=== PATIENT | male | born 1995 | race Two or more races ===

== ENCOUNTER 2016-10-22 06:13 | Emergency (ER) | payer BC ==
[~2016-10-22] VITALS: Ht 182.9 cm; Wt 104.3 kg
[2016-10-22 06:42] VITALS: BP 147/102
== END 2016-10-22 08:53 | disposition home or self-care (01) ==
LOC: ER 06:14
DX: S60.221A Contusion of right hand, initial encounter (principal); X50.0XXA Overexertion from strenuous movement or load, initial encounter; Y93.89 Activity, other specified; Y99.8 Other external cause status; Y92.89 Other specified places as the place of occurrence of the external cause
CPT/HCPCS: 73130

== ENCOUNTER 2017-01-10 03:26 | Emergency (ER) | payer BC ==
[~2017-01-10] VITALS: Ht 185.4 cm; Wt 108.9 kg
[2017-01-10 07:15] VITALS: BP 144/80
[2017-01-10] MEDS: KETOROLAC TROMETH 60MG/2ML VIAL IM ONE (07:30)
== END 2017-01-10 09:23 | disposition left against medical advice (07) ==
LOC: ER 03:26
DX: S33.5XXA Sprain of ligaments of lumbar spine, initial encounter (principal); X58.XXXA Exposure to other specified factors, initial encounter; Y93.89 Activity, other specified; Y99.8 Other external cause status; Y92.89 Other specified places as the place of occurrence of the external cause
CPT/HCPCS: 72100

== ENCOUNTER 2017-07-23 16:40 | Emergency (ER) | payer BC ==
[~2017-07-23] VITALS: Ht 182.9 cm; Wt 104.3 kg
[2017-07-23 16:46] VITALS: BP 125/83
[2017-07-23 18:28] LABS: Basophils # (auto) 0.1 uL; Basophils % (auto) 0.4 % (0.0-2.0); Eosinophils # (auto) 0 uL; Eosinophils % (auto) 0.1 % (0.0-7.0); Hematocrit 47.9 % (41.0-53.0); Hemoglobin 16.5 g/dL (13.5-17.5); Lymphocytes # (auto) 1.3 uL; Lymphocytes % (auto) 9.1 % (10.0-50.0); Mean Corpuscular Hemoglobin 30.6 pg (28.0-32.0); Mean Corpuscular Hgb Conc. 34.5 g/dL (32.0-36.0); Mean Corpuscular Volume 88.8 fL (80.0-100.0); Mean Platelet Volume 8.6 fL (6.9-10.8); Monocytes # (auto) 1.2 uL; Monocytes % (auto) 8.4 % (0.0-12.0); Neutrophils # (auto) 11.7 uL; Nucleated Red Blood Cells % 0.1 %; Platelet Count (auto) 285 10^3/uL (140-450); White Blood Cell 14.3 10^3/uL (4.4-10.8)
[2017-07-23 18:37] LABS: Urine Bilirubin Negative (Negative); Urine Blood 3+ /uL (Negative); Urine Color Yellow (Yellow); Urine Glucose TRACE mg/dL (Normal); Urine Ketone Negative (Negative); Urine Mucus FEW (None Seen); Urine Nitrite Negative (Negative); Urine RBC 266 /hpf (0 - 3); Urine Squamous Epithelial Cell FEW /hpf (<5); Urine WBC Clumps PRESENT /hpf (None Seen)
== END 2017-07-23 23:57 | disposition left against medical advice (07) ==
LOC: ER 16:40
DX: R10.9 Unspecified abdominal pain (principal); Z53.21 Procedure and treatment not carried out due to patient leaving prior to being seen by health care provider
CPT/HCPCS: 36415; 74176; 81001; 85025

== ENCOUNTER 2025-01-10 04:52 | Inpatient (IN) | payer BC, SELFPAY ==
[2025-01-10] VITALS (8 sets, daily range): BP systolic 120–145; BP diastolic 68–88; PULSE 62–99; RESP 16–22; TEMP 97.5–98.7; O2SAT 95–99
[~2025-01-10] VITALS: Ht 182.9 cm; Wt 110.5 kg
--- NOTE | 2025-01-10 05:05 | ED.PDOC ---
General HPI Comments 29 year old male presents to the ED via EMS with a chief complaint of LT flank pain onset today (01/10/25) around 03:00. Patient states he woke up today around 03:00, went to the restroom noticed he was unable to urinate, few droplets only, has urgency sensation as well as LT flank pain. Patient states he has experienced kidney stones in the past, pain is similar. Upon EMS arrival patient's pain was 10/10, was given Fentanyl 100 mcg as well as Zofran 4 mg for nausea. Denies vomiting, diarrhea, constipation, chest pain, shortness of breath, fevers, chills, headache, dizziness. No other symptoms or modifying factors present at this time. Chief Complaint: Flank Pain Time Seen by MD: 05:00 Primary Care Provider: Marla Clark notes: Medications, Allergies Allergies: Coded Allergies: NO KNOWN ALLERGIES (Unverified , 10/24/15) Home Meds Reported Medications Hydrocodone-Acetaminophen (Hydrocodone Bitartrate/AC 10-325 mg) 1 Tab Tab, 1 TAB PO QID, TAB 01/10/25 Information Source: Patient, Emergency Med Personnel Severity: Moderate Timing: Hours Duration: Since onset Prehospital treatment: Pain Meds (Fentanyl 100 mcg ), Treatment (Zofran 4 mg) Onset: Spontaneous Symptoms: Urgency History of: Kidney stone Location: (L)Flank Penile discharge: None Modifying factors: None associated signs and symptoms: Flank Pain (LT), Urgency Past Medical History PAST MEDICAL HISTORY: Kidney Stones Past Medical History (Other): chronic back pain Surgical History: Denies all surgeries Family History Family History: No family hx of DM, No family hx of Heart alix, No family hx of HTN Social History Smoker: Non-Smoker Alcohol: Denies ETOH Use Drugs: Denies Drug Use Lives In: Home Constitutional: denies: chills, diaphoresis, fatigue, fever, malaise, sweats, weakness, others EENTM: denies: blurred vision, double vision, ear bleeding, ear discharge, ear drainage, ear pain, ear ringing, eye pain, eye redness, hearing loss, mouth pain, mouth swelling, nasal discharge, nose bleeding, nose congestion, nose pain, photophobia, tearing, throat pain, throat swelling, voice changes, others Respiratory: denies: cough, hemoptysis, orthopnea, SOB at rest, shortness of breath, SOB with excertion, stridor, wheezing, others Cardiovascular: denies: chest pain, dizzy spells, diaphoresis, Dyspnea on exertion, edema, irregular heart beat, left arm pain, lightheadedness, palpitations, PND, syncope, others Gastrointestinal: denies: abdomen distended, abdominal pain, blood streaked bowels, constipated, diarrhea, dysphagia, difficulty swallowing, hematemesis, melena, nausea, poor appetite, poor fluid intake, rectal bleeding, rectal pain, vomiting, others Genitourinary: reports: flank pain (LT), urgency; denies: burning, dysuria, frequency, hematuria, incontinence, penile discharge, penile sore, pain, testicle pain, testicle swelling, others Neurological: denies: dizziness, fainting, headache, left sided numbness, left sided weakness, numbness, paresthesia, pre-existing deficit, right sided numb ness, right sided weakness, seizure, speech problems, tingling, tremors, weakness, others Musculoskeletal: denies: back pain, gout, joint pain, joint swelling, muscle pain, muscle stiffness, neck pain, others Integumetry: denies: bruises, change in color, change in hair/nails, dryness, laceration, lesions, lumps, rash, wounds, others Allergic/Immunocompromised: denies: Difficulty Healing, Frequent Infections, Hives, Itching, others Hematologic/Lymphatic: denies: anemia, blood clots, easy bleeding, easy bruising, swollen glands, others Endocrine: denies: excessive hunger, excessive sweating, excessive thirst, excessive urination, flushing, intolerance to cold, intolerance to heat, unexplained weight gain, unexplained weight loss, others Psychiatric: denies: anxiety, bipolar disorder, depression, hopeless, panic disorder, schizophrenia, sleepless, suicidal, others All Other Systems: Reviewed and Negative Physical Exam General Appearance: Normal HEENT: Normal ENT Inspection, Pharynx Normal, TMs Normal Neck: Full Range of Motion, Non-Tender, Normal, Normal Inspection Respiratory: Chest Non-Tender, Lungs Clear, No Accessory Muscle Use, No Re spiratory Distress, Normal Breath Sounds Cardiovascular: No Edema, No JVD, No Murmur, No Gallop, Normal Peripheral Pulses, Regular Rate/Rhythm Breast Exam: Deferred Gastrointestinal: No Organomegaly, Non Tender, No Pulsatile Mass, Normal Bowel Sounds, Soft Genitalia: Deferred Pelvic: Deferred Rectal: Deferred Extremities: No calf tenderness, Normal capillary refill, Normal inspection, Normal range of motion, Non-tender, No pedal edema Musculoskeletal : Apperance: Normal Neurologic: Alert, construction controller II-XII nml as Tested, No Motor Deficits, Normal Affect, Normal Mood, No Sensory Deficits Cerebellar Function: Normal Reflexes: Normal Skin: Dry, Normal Color, Warm Lymphatic: No Adenopathy Was a procedure done? Was a procedure done?: No Differential Diagnosis Kidney stone (Female): AAA, Aortic dissection, Bowel obstruction, Cholelithiasis, Pancreatitis, Pyelonephritis, Strain, Urinary obstruction, Urolithiasis, Other X-Ray, Labs, Meds, VS Vital Signs Date Time Temp Pulse Resp B/P (MAP) Pulse Ox O2 Delivery O2 Flow Rate FiO2 01/10/25 05:00 98.2 62 19 149/96 (113) 97 98.2 Lab Test 01/10/25 05:16 01/10/25 05:05 Range/Units White Blood Count 4.7 4.4-10.8 10^3/uL Red Blood Count 5.07 4.5-5.90 10^6/uL Hemoglobin 15.3 13.5-17.5 g/dL Hematocrit 44.3 41.0-53.0 % Mean Corpuscular Volume 87.4 80.0-100.0 fL Mean Corpuscular Hemoglobin 30.2 28.0-32.0 pg Mean Corpuscular Hemoglobin Concent 34.5 32.0-36.0 g/dL Red Cell Distribution Width 13.0 11.8-14.3 % Platelet Count 243 140-450 10^3/uL Mean Platelet Volume 7.9 6.9-10.8 fL Neutrophils (%) (Auto) 61.9 37.0-80.0 % Lymphocytes (%) (Auto) 29.3 10.0-50.0 % Monocytes (%) (Auto) 6.1 0.0-12.0 % Eosinophils (%) (Auto) 1.5 0.0-7.0 % Basophils (%) (Auto) 1.2 0.0-2.0 % Neutrophils # (Auto) 2.9 1.6-8.6 10 ^3/uL Lymphocytes # (Auto) 1.4 0.4-5.4 10 ^3/uL Monocytes # (Auto) 0.3 0-1.3 10 ^3/uL Eosinophils # (Auto) 0.1 0-0.8 10 ^3/uL Basophils # (Auto) 0.1 0-0.2 10 ^3/uL Nucleated Red Blood Cells 0.0 % Sodium Level 144 136-145 mmol/L Potassium Level 3.6 3.5-5.1 mmol/L Chloride Level 109 H 98-107 mmol/L Carbon Dioxide Level 24 20-31 mmol/L Anion Gap 11 5-15 Blood Urea Nitrogen 17 9-23 mg/dL Creatinine 0.88 0.700-1.30 mg/dL Glomerular Filtration Rate Calc 120 >90 mL/min BUN/Creatinine Ratio 19.3 10.0-20.0 Serum Glucose 105 74-106 mg/dL Calcium Level 9.4 8.7-10.4 mg/dL Total Bilirubin 0.6 0.2-1.0 mg/dL Aspartate Amino Transferase (AST) 17 13-40 U/L Alanine Aminotransferase (ALT) 26 7-40 U/L Alkaline Phosphatase 74 46-116 U/L Total Protein 7.0 5.7-8.2 g/dL Albumin 4.6 3.2-4.8 g/dL Lipase 46 12-53 U/L Urine Color Light-yellow Yellow Urine Clarity Clear Clear Urine pH 6.0 5.0-9.0 Urine Specific [place] 1.021 1.001-1.035 Urine Protein Negative Negative Urine Ketones Negative Negative Urine Blood 3+ H Negative /uL Urine Nitrite Negative Negative Urine Bilirubin Negative Negative Urine Urobilinogen Normal Negative mg/dL Urine Leukocyte Esterase Negative Negative /uL Urine RBC 178 0 - 3 /hpf Urine Microscopic WBC 6 H 0-3 /HPF Urine Squamous Epithelial Cells Few <5 /hpf Urine Bacteria None seen None Seen /hpf Urine Mucus Few None Seen Urine Glucose Normal Normal mg/dL Time of 1ST Reevaluation: 05:30 Reevaluation 1ST: Unchanged Patient Education/Counseling: Diagnosis, Treatment, Prognosis Family Education/Counseling: No Family Present Departure 1 Departure Time of Disposition: 07:30 Impression: Primary Impression: Musculoskeletal pain Disposition: 01 HOME / SELF CARE / HOMELESS Condition: Stable Discharged With: Self Critical Care Note Critical Care Time?: No Stability Stability form required: No I personally scribed for NOWLIS,MIN A MD ([email or web address]) on 01/10/25 at 05:05. Electronically submitted by Hilda Alvarado ([email or web address]). MIN SEO MD Jan 10, 2025 05:05
[2025-01-10 05:30] LABS: Basophils # (auto) 0.1 10 ^3/uL (0-0.2); Basophils % (auto) 1.2 % (0.0-2.0); Eosinophils # (auto) 0.1 10 ^3/uL (0-0.8); Eosinophils % (auto) 1.5 % (0.0-7.0); Hematocrit 44.3 % (41.0-53.0); Hemoglobin 15.3 g/dL (13.5-17.5); Lymphocytes # (auto) 1.4 10 ^3/uL (0.4-5.4); Lymphocytes % (auto) 29.3 % (10.0-50.0); Mean Corpuscular Hemoglobin 30.2 pg (28.0-32.0); Mean Corpuscular Hgb Conc. 34.5 g/dL (32.0-36.0); Mean Corpuscular Volume 87.4 fL (80.0-100.0); Monocytes # (auto) 0.3 10 ^3/uL (0-1.3); Monocytes % (auto) 6.1 % (0.0-12.0); Neutrophils # (auto) 2.9 10 ^3/uL (1.6-8.6); Neutrophils % (auto) 61.9 % (37.0-80.0); Platelet Count (auto) 243 10^3/uL (140-450); Red Blood Cells 5.07 10^6/uL (4.5-5.90); White Blood Cell 4.7 10^3/uL (4.4-10.8)
[2025-01-10 05:47] LABS: Alanine Aminotransferase 26 U/L (7-40); Albumin 4.6 g/dL (3.2-4.8); Alkaline Phosphatase 74 U/L (46-116); Anion Gap 11 (5-15); Aspartate Aminotransferase 17 U/L (13-40); BUN/Creatinine Ratio 19.3 (10.0-20.0); Bilirubin, Total 0.6 mg/dL (0.2-1.0); Blood Urea Nitrogen 17 mg/dL (9-23); Calcium 9.4 mg/dL (8.7-10.4); Carbon Dioxide 24 mmol/L (20-31); Glucose 105 mg/dL (74-106); Lipase 46 U/L (12-53); Potassium 3.6 mmol/L (3.5-5.1); Sodium 144 mmol/L (136-145)
[2025-01-10 05:51] LABS: Chloride 109 mmol/L (98-107)
--- NOTE | 2025-01-10 05:55 | DVH ---
Exam: CT CT AB PEL WO CON-NO ORAL OR IV History: left flank pain Comparison Study: None Technique: Multidetector spiral CT of the abdomen and pelvis was performed from lung bases to pubic s ymphysis. Imaging was performed without intravenous contrast. Coronal and sagittal multiplanar reform ats were obtained from the axial data set by the technologist. Radiation Dose : 1. Abdomen/Pelvis: CTDIvol 11.1 mGy, DLP 693.2 mGy*cm. Findings: Evaluation of vasculature and solid organs is limited due to lack of intravenous contrast use. Lung Bases: Lung bases are clear. Visualized portions of the heart and pericardium are unremarkable. Liver: The liver is normal in size. No focal lesions. Gallbladder and Biliary Tree: The gallbladder is unremarkable. No intrahepatic or extrahepatic biliar y ductal dilatation. Spleen: Unremarkable Pancreas: The pancreas is grossly unremarkable. Adrenal Glands: Unremarkable Kidneys: There is a 3 mm nonobstructive calculus in the lower pole of the right kidney. No left intra renal calculi. No hydronephrosis in the right or left kidney. There is a 2 mm nonobstructive calculus at the left ureterovesical junction with mild upstream dilatation of the distal left ureter. GI tract: The stomach is grossly normal in appearance. No evidence of small bowel wall thickening or abnormal dilatation to suggest bowel obstruction. The colon is unremarkable. The appendix is not visu alized, however no inflammatory changes in the right lower quadrant to suggest acute appendicitis. Peritoneum/mesentery/retroperitoneum. No evidence of free intraperitoneal air. No ascites. No evidenc e of suspicious lymphadenopathy. Abdominal Wall: Unremarkable. Vasculature: The visualized abdominal aorta is normal in size and caliber. Evaluation of abdominal a nd pelvic vessels is limited due to lack of intravenous contrast. Urinary Bladder: Grossly unremarkable for degree of distention. Pelvic Organs: Unremarkable Musculoskeletal: No aggressive focal bony lesions, acute fractures or dislocation. IMPRESSION: 1. 2 mm obstructing calculus at the left ureterovesical junction causing mild distal left hydroureter onephrosis. 2. Nonobstructing right intrarenal calculus.
[2025-01-10 06:03] LABS: Urine Bacteria None Seen /hpf (None Seen)
[2025-01-10 06:16] LABS: Urine Blood 3+ /uL (Negative); Urine Clarity Clear (Clear); Urine Color Light-Yellow (Yellow); Urine Mucus FEW (None Seen); Urine Protein, UAD Negative (Negative); Urine Specific Gravity 1.021 (1.001-1.035); Urine Squamous Epithelial Cell FEW /hpf (<5); Urine Urobilinogen Normal (Negative); Urine WBC 6 /HPF (0-3)
[2025-01-10] MEDS ORDERED: ACETAMINOPHEN 325 MG TAB PO PRN (07:30)
[2025-01-10] MEDS ORDERED: ONDANSETRON HCL 4 MG/2 ML VIAL IV PRN (07:30)
--- NOTE | 2025-01-10 07:31 | DVHHP2 ---
History of Present Illness Reason for Visit: Left flank pain History of Present Illness Sukumar Vines is a 29-year-old male with past medical history of MS, nephrolithiasis, DDD, and chronic back pain who presents to the ED with left flank pain with nausea and constipation that started at 3:00 a.m today. Upon examination patient states that the pain is currently 1 to 2/10 sharp and constant. He states on the way here EMS gave him pain medications for relief. Patient states that he takes pain medications for his chronic back pain. Patient denies any recent trauma or injury, recent sick contacts, recent travels, recent ingestion of spoiled food, chest pain, shortness of breath, abdominal pain, vomiting, or diarrhea. Past Medical History Nephrolithiasis Degenerative disc disease Multiple sclerosis Chronic back pain Past Surgical History: None Family History: None Smoke: No ALCOHOL: none Drugs: Marijuana Lives: with Family Domestic Violence: Neg Review of Systems Gastrointestinal: Nausea, Constipation Musculoskeletal: other (Left flank pain) Allergies: Coded Allergies: NO KNOWN ALLERGIES (Unverified , 10/24/15) Exam Vital Signs Vital Signs Date Time Temp Pulse Resp B/P (MAP) Pulse Ox O2 Delivery O2 Flow Rate FiO2 01/10/25 05:00 98.2 62 19 149/96 (113) 97 98.2 General Appearance: Alert, Oriented X3, Cooperative, No acute distress HEENT: Atraumatic, PERRLA, EOMI, Mucous membr. moist/pink Respiratory: Clear to auscultation, Normal air movement Cardiovascular: Regular rate, Normal S1, Normal S2, No murmurs Abdominal: Soft Extremities: No cyanosis, Normal pulses Neuro: Normal gait, Normal speech, Strength at 5/5 X4 ext, Normal tone, Sensation intact Psych/Mental Status: Mental status NL, Mood NL Labs/Xrays Labs Test 01/10/25 05:16 01/10/25 05:05 Range/Units White Blood Count 4.7 4.4-10.8 10^3/uL Red Blood Count 5.07 4.5-5.90 10^6/uL Hemoglobin 15.3 13.5-17.5 g/dL Hematocrit 44.3 41.0-53.0 % Mean Corpuscular Volume 87.4 80.0-100.0 fL Mean Corpuscular Hemoglobin 30.2 28.0-32.0 pg Mean Corpuscular Hemoglobin Concent 34.5 32.0-36.0 g/dL Red Cell Distribution Width 13.0 11.8-14.3 % Platelet Count 243 140-450 10^3/uL Mean Platelet Volume 7.9 6.9-10.8 fL Neutrophils (%) (Auto) 61.9 37.0-80.0 % Lymphocytes (%) (Auto) 29.3 10.0-50.0 % Monocytes (%) (Auto) 6.1 0.0-12.0 % Eosinophils (%) (Auto) 1.5 0.0-7.0 % Basophils (%) (Auto) 1.2 0.0-2.0 % Neutrophils # (Auto) 2.9 1.6-8.6 10 ^3/uL Lymphocytes # (Auto) 1.4 0.4-5.4 10 ^3/uL Monocytes # (Auto) 0.3 0-1.3 10 ^3/uL Eosinophils # (Auto) 0.1 0-0.8 10 ^3/uL Basophils # (Auto) 0.1 0-0.2 10 ^3/uL Nucleated Red Blood Cells 0.0 % Sodium Level 144 136-145 mmol/L Potassium Level 3.6 3.5-5.1 mmol/L Chloride Level 109 H 98-107 mmol/L Carbon Dioxide Level 24 20-31 mmol/L Anion Gap 11 5-15 Blood Urea Nitrogen 17 9-23 mg/dL Creatinine 0.88 0.700-1.30 mg/dL Glomerular Filtration Rate Calc 120 >90 mL/min BUN/Creatinine Ratio 19.3 10.0-20.0 Serum Glucose 105 74-106 mg/dL Calcium Level 9.4 8.7-10.4 mg/dL Total Bilirubin 0.6 0.2-1.0 mg/dL Aspartate Amino Transferase (AST) 17 13-40 U/L Alanine Aminotransferase (ALT) 26 7-40 U/L Alkaline Phosphatase 74 46-116 U/L Total Protein 7.0 5.7-8.2 g/dL Albumin 4.6 3.2-4.8 g/dL Lipase 46 12-53 U/L Urine Color Light-yellow Yellow Urine Clarity Clear Clear Urine pH 6.0 5.0-9.0 Urine Specific [place] 1.021 1.001-1.035 Urine Protein Negative Negative Urine Ketones Negative Negative Urine Blood 3+ H Negative /uL Urine Nitrite Negative Negative Urine Bilirubin Negative Negative Urine Urobilinogen Normal Negative mg/dL Urine Leukocyte Esterase Negative Negative /uL Urine RBC 178 0 - 3 /hpf Urine Microscopic WBC 6 H 0-3 /HPF Urine Squamous Epithelial Cells Few <5 /hpf Urine Bacteria None seen None Seen /hpf Urine Mucus Few None Seen Urine Glucose Normal Normal mg/dL Exam: CT CT AB PEL WO CON-NO ORAL OR IV History: left flank pain Comparison Study: None Technique: Multidetector spiral CT of the abdomen and pelvis was performed from lung bases to pubic symphysis. Imaging was performed without intravenous contrast. Coronal and sagittal multiplanar reformats were obtained from the axial data set by the technologist. Radiation Dose : 1. Abdomen/Pelvis: CTDIvol 11.1 mGy, DLP 693.2 mGy*cm. Findings: Evaluation of vasculature and solid organs is limited due to lack of intravenous contrast use. Lung Bases: Lung bases are clear. Visualized portions of the heart and pericardium are unremarkable. Liver: The liver is normal in size. No focal lesions. Gallbladder and Biliary Tree: The gallbladder is unremarkable. No intrahepatic or extrahepatic biliary ductal dilatation. Spleen: Unremarkable Pancreas: The pancreas is grossly unremarkable. Adrenal Glands: Unremarkable Kidneys: There is a 3 mm nonobstructive calculus in the lower pole of the right kidney. No left intrarenal calculi. No hydronephrosis in the right or left kidney. There is a 2 mm nonobstructive calculus at the left ureterovesical junc tion with mild upstream dilatation of the distal left ureter. GI tract: The stomach is grossly normal in appearance. No evidence of small bowel wall thickening or abnormal dilatation to suggest bowel obstruction. The colon is unremarkable. The appendix is not visualized, however no inflammatory changes in the right lower quadrant to suggest acute appendicitis. Peritoneum/mesentery/retroperitoneum. No evidence of free intraperitoneal air. No ascites. No evidence of suspicious lymphadenopathy. Abdominal Wall: Unremarkable. Vasculature: The visualized abdominal aorta is normal in size and caliber. Evaluation of abdominal and pelvic vessels is limited due to lack of intravenous contrast. Urinary Bladder: Grossly unremarkable for degree of distention. Pelvic Organs: Unremarkable Musculoskeletal: No aggressive focal bony lesions, acute fractures or dislocation. IMPRESSION: 1. 2 mm obstructing calculus at the left ureterovesical junction causing mild distal left hydroureteronephrosis. 2. Nonobstructing right intrarenal calculus. Assessment/Plan Assessment/Plan Assessment Intractable left flank pain likely due to 2 mm obstructing calculus at the left ureterovesical junction causing mild distal left hydroureteronephrosis. Nonobstructing right intrarenal calculus. History of nephrolithiasis History of degenerative disc disease History of multiple sclerosis History of chronic back pain Plan Admit to med surge Pain management Antiemetics CT abdomen and pelvis noted UA Lipase Strain all urine IV fluids Diet Home medications reconciled DVT prophylaxis-not indicated patient ambulating PUD prophylaxis-not indicated no history of GERD or GI bleed Discussed plan of care with patient and nurse Rounding hospitalist consider urology consult if symptoms worsen or if stone does not pass Plan discussed with: Patient My Orders Orders - CHARLINE CRUZ Procedure Category Date Status Time Strain All Urine ED NURSING 01/10/25 Transmitted Tamsulosin PHA 01/10/25 Transmitted Hydrochloride (Flomax) 18:00 Tamsulosin PHA 01/10/25 Transmitted Hydrochloride (Flomax) 07:30 NS PHA 01/10/25 Transmitted 07:30 Admit ADMIT 01/10/25 Verified 07:19 Allergies MAURY 01/10/25 Verified 07:19 Code Status CODE 01/10/25 Verified 07:19 Hydrocodone-Acet PHA 01/10/25 Verified 5/325mg Tab ([place] 07:30 Ondansetron Hcl PHA 01/10/25 Verified (Zofran) 07:30 Complete Blood Count LAB 01/11/25 Verified 04:00 Comprehensive LAB 01/11/25 Verified Metabolic Panel 04:00 Cardiac DIET 01/10/25 Verified Diet-2gna,Lofat,Lochol Breakfast Acetaminophen Tablet PHA 01/10/25 Verified (Tylenol Tablet) 07:30 Morphine Sulfate PHA 01/10/25 Verified Injection 07:30 Sequential MAURY 01/10/25 Verified Compression Device Date of Service: Jan 10, 2025 Billing Provider: CHARLINE CRUZ Common Visit Codes: 60944-FYGAIOA INP/OBS CARE (HIGH) CHARLINE CRUZ Jan 10, 2025 07:31
[2025-01-10] MEDS: TAMSULOSIN HYDROCHLORIDE 0.4 MG CAP PO ONE (08:09)
[2025-01-10] MEDS: SODIUM CHLORIDE 0.9% 1,000 ML IV SCH (08:26)
[2025-01-10] MEDS: MORPHINE SULFATE 4 MG/ML SYR/VIAL IV PRN (08:47)
[2025-01-10] MEDS ORDERED: HYDR-4798 PO (10:17)
[2025-01-10] MEDS: HYDROcodone-ACET 5/325MG TAB PO PRN (13:34)
[2025-01-10] MEDS: TAMSULOSIN HYDROCHLORIDE 0.4 MG CAP PO SCH (16:49)
[2025-01-11] VITALS (7 sets, daily range): BP systolic 119–139; BP diastolic 62–78; PULSE 61–67; RESP 15–18; TEMP 97.5–98.3; O2SAT 96–98
[2025-01-11 06:02] LABS: Basophils # (auto) 0 10 ^3/uL (0-0.2); Basophils % (auto) 0.8 % (0.0-2.0); Eosinophils # (auto) 0.1 10 ^3/uL (0-0.8); Eosinophils % (auto) 1.5 % (0.0-7.0); Hematocrit 42.6 % (41.0-53.0); Hemoglobin 14.6 g/dL (13.5-17.5); Lymphocytes # (auto) 1.8 10 ^3/uL (0.4-5.4); Lymphocytes % (auto) 42.2 % (10.0-50.0); Mean Corpuscular Hemoglobin 30.1 pg (28.0-32.0); Mean Corpuscular Hgb Conc. 34.2 g/dL (32.0-36.0); Monocytes # (auto) 0.3 10 ^3/uL (0-1.3); Neutrophils # (auto) 2.1 10 ^3/uL (1.6-8.6); Neutrophils % (auto) 47.5 % (37.0-80.0); Nucleated Red Blood Cells % 0.2 %; Platelet Count (auto) 222 10^3/uL (140-450); Red Blood Cells 4.84 10^6/uL (4.5-5.90); Red Cell Distribution Width 12.8 % (11.8-14.3); White Blood Cell 4.3 10^3/uL (4.4-10.8)
[2025-01-11 06:10] LABS: Alanine Aminotransferase 24 U/L (7-40); Albumin 4.2 g/dL (3.2-4.8); Alkaline Phosphatase 70 U/L (46-116); Anion Gap 8 (5-15); Aspartate Aminotransferase 18 U/L (13-40); BUN/Creatinine Ratio 13.8 (10.0-20.0); Blood Urea Nitrogen 11 mg/dL (9-23); Carbon Dioxide 26 mmol/L (20-31); Glucose 95 mg/dL (74-106); Sodium 142 mmol/L (136-145); Total Protein 6.4 g/dL (5.7-8.2)
[2025-01-11 06:14] LABS: Chloride 108 mmol/L (98-107)
[2025-01-11] MEDS ORDERED: TAMS-35 PO (12:05)
[2025-01-11] MEDS ORDERED: TRAM-626 PO (12:05)
--- NOTE | 2025-01-11 12:14 | DVHDS2 ---
Discharge Summary Date of Admission Jan 10, 2025 at 07:19 Date of Discharge: Jan 11, 2025 Admitting Diagnosis Obstructive uropathy Labs/Diagnostic Data: Laboratory Results Test 01/11/25 05:24 01/10/25 05:16 01/10/25 05:05 White Blood Count 4.3 10^3/uL (4.4-10.8) Red Blood Count 4.84 10^6/uL (4.5-5.90) Hemoglobin 14.6 g/dL (13.5-17.5) Hematocrit 42.6 % (41.0-53.0) Mean Corpuscular Volume 88.0 fL (80.0-100.0) Mean Corpuscular Hemoglobin 30.1 pg (28.0-32.0) Mean Corpuscular Hemoglobin Concent 34.2 g/dL (32.0-36.0) Red Cell Distribution Width 12.8 % (11.8-14.3) Platelet Count 222 10^3/uL (140-450) Mean Platelet Volume 8.2 fL (6.9-10.8) Neutrophils (%) (Auto) 47.5 % (37.0-80.0) Lymphocytes (%) (Auto) 42.2 % (10.0-50.0) Monocytes (%) (Auto) 8.0 % (0.0-12.0) Eosinophils (%) (Auto) 1.5 % (0.0-7.0) Basophils (%) (Auto) 0.8 % (0.0-2.0) Neutrophils # (Auto) 2.1 10 ^3/uL (1.6-8.6) Lymphocytes # (Auto) 1.8 10 ^3/uL (0.4-5.4) Monocytes # (Auto) 0.3 10 ^3/uL (0-1.3) Eosinophils # (Auto) 0.1 10 ^3/uL (0-0.8) Basophils # (Auto) 0 10 ^3/uL (0-0.2) Nucleated Red Blood Cells 0.2 % Sodium Level 142 mmol/L (136-145) Potassium Level 4.0 mmol/L (3.5-5.1) Chloride Level 108 mmol/L (98-107) Carbon Dioxide Level 26 mmol/L (20-31) Anion Gap 8 (5-15) Blood Urea Nitrogen 11 mg/dL (9-23) Creatinine 0.80 mg/dL (0.700-1.30) Glomerular Filtration Rate Calc 124 mL/min (>90) BUN/Creatinine Ratio 13.8 (10.0-20.0) Serum Glucose 95 mg/dL (74-106) Calcium Level 9.0 mg/dL (8.7-10.4) Total Bilirubin 1.0 mg/dL (0.2-1.0) Aspartate Amino Transferase (AST) 18 U/L (13-40) Alanine Aminotransferase (ALT) 24 U/L (7-40) Alkaline Phosphatase 70 U/L (46-116) Total Protein 6.4 g/dL (5.7-8.2) Albumin 4.2 g/dL (3.2-4.8) Lipase 46 U/L (12-53) Urine Color Light-yellow (Yellow) Urine Clarity Clear (Clear) Urine pH 6.0 (5.0-9.0) Urine Specific [place] 1.021 (1.001-1.035) Urine Protein Negative (Negative) Urine Ketones Negative (Negative) Urine Blood 3+ /uL (Negative) Urine Nitrite Negative (Negative) Urine Bilirubin Negative (Negative) Urine Urobilinogen Normal mg/dL (Negative) Urine Leukocyte Esterase Negative /uL (Negative) Urine RBC 178 /hpf (0 - 3) Urine Microscopic WBC 6 /HPF (0-3) Urine Squamous Epithelial Cells Few /hpf (<5) Urine Bacteria None seen /hpf (None Seen) Urine Mucus Few (None Seen) Urine Glucose Normal mg/dL (Normal) Other Laboratory Tests 01/11/25 05:24 Brief Hx & Hospital Course: History of Present Illness Sukumar Vines is a 29-year-old male with past medical history of MS, nephrolithiasis, DDD, and chronic back pain who presents to the ED with left flank pain with nausea and constipation that started at 3:00 a.m today. Upon examination patient states that the pain is currently 1 to 2/10 sharp and constant. He states on the way here EMS gave him pain medications for relief. Patient states that he takes pain medications for his chronic back pain. Patient denies any recent trauma or injury, recent sick contacts, recent travels, recent ingestion of spoiled food, chest pain, shortness of breath, abdominal pain, vomiting, or diarrhea. Course of hospitalization: Patient was given aggressive IV hydration, tamsulosin, with the patient reporting his pain has improved today. Patient will be discharged home as instructed to continue with increased oral intake with water, as well as being provided tamsulosin for additional three days as well as pain medication for the next several days. He is instructed to follow up with his PCP in 1-2 weeks. All questions answered. Physical examination General: Alert and Oriented x3. No acute distress. Well-nourished. Eyes: EOMI. Anicteric. HENT: Moist mucous membranes. Lungs: Clear to auscultation bilaterally. No accessory muscle use. Cardiovascular: Regular rate and rhythm. No murmur. No JVD. Abdomen: Soft, non-tender and non-distended. No palpable masses. Extremities: No edema. Non-tender. Skin: No rashes or lesions. Warm. Neurologic: No focal neurological deficits. CN II-XII grossly intact, but not individually tested. Psychiatric: Cooperative. Appropriate mood and affect. Total time spent with patient discussing and formulating plan of care: 35 minutes. This medical document was created using an electronic medical record system with [employer] dictation system. Although this document has been carefully reviewed, there may still be some phonetic and typographical errors. These areas are purely typographical due to imperfections of the software programs, and do not reflect any compromise in the patient's medical care. Condition at Discharge: Fair Final Diagnosis/Problems List Obstructive uropathy -obesity Discharge Disposition: Home Discharge Instruct/Medications Diet: Regular Follow Up/Referral: PCP in 1-2 weeks Discharge Clinic in 1-2 weeks if unable to obtain appointment with primary care provider Medications: Flomax 0.4 mg p.o. x3 days Ultram 50 mg q.12 hours as needed for [id number] pain 36 Discharge Statement: "Patient was advised to return to the ER or call 911 if any headaches, dizziness, shortness of breath, chest pain, abdominal pain, bleeding, fevers, or worsening of medical condition. Patient was counseled about treatment plan, medications, possible side effects, patientverbalized understanding. All questions were answered to the best of my ability. This discharge took greater then 30 minutes in planning, reviewing documentation, counseling the patient, and discussing with other team members." ASSESSMENT ASSESSMENT Assessment Date of Service: Jan 11, 2025 Billing Provider: CHASE HOPE NP Common Visit Codes: 43326-CYE/OBS DISCH DAY >30min CHASE HOPE NP Jan 11, 2025 12:14
== END 2025-01-11 18:59 | disposition home or self-care (01) | DRG 700 ==
LOC: ER 04:52 → EDBD 04:52 → OVERFLOW 07:19 → EAST 14:46
PROVIDERS: ADMIT Nurse Practitioner Acute Care; ATTEND Nurse Practitioner Acute Care
DX: N13.9 Obstructive and reflux uropathy, unspecified (principal); N20.2 Calculus of kidney with calculus of ureter; E66.9 Obesity, unspecified; Z68.31 Body mass index [BMI] 31.0-31.9, adult; G35 Multiple sclerosis; K59.00 Constipation, unspecified; G89.29 Other chronic pain; Z87.442 Personal history of urinary calculi
CPT/HCPCS: 36415; 74176; 80053; 81001; 83690; 85025; 96361; 96374; G0378